=== PATIENT | male | born 1965 | race Caucasian/White ===

== ENCOUNTER 2024-07-23 01:25 | Emergency (ER) | payer MEDICAID ==
[~2024-07-23] VITALS: Ht 182.9 cm; Wt 102.1 kg
[2024-07-23 01:29] VITALS: BP_SYST 86; PULSE 118; RESP 18; TEMP 96.7; O2SAT 93
[2024-07-23 01:47] VITALS: BP_SYST 86; PULSE 118; RESP 18; TEMP 96.7; O2SAT 93
== END 2024-07-23 01:47 ==
LOC: SED 01:25
DX: E11.65 Type 2 diabetes mellitus with hyperglycemia (principal)
CPT/HCPCS: 82948; 99283